=== PATIENT | female | born 1990 | race Caucasian/White ===

== ENCOUNTER 2021-09-03 20:33 | Emergency (ER) | payer OTHER, MEDICAID ==
[2021-09-03] MEDS ORDERED: IBUPROFEN800 MG PO (21:59)
== END 2021-09-03 22:20 | disposition home or self-care (01) ==
LOC: ER1 20:33
DX: S16.1XXA Strain of muscle, fascia and tendon at neck level, initial encounter (principal); F17.200 Nicotine dependence, unspecified, uncomplicated; V49.50XA Passenger injured in collision with unspecified motor vehicles in traffic accident, initial encounter; Y92.410 Unspecified street and highway as the place of occurrence of the external cause
CPT/HCPCS: 70450; 72125; 99284